=== PATIENT | female | born 1980 | race African-American/Black ===

== ENCOUNTER 2025-04-15 00:36 | Day surgery (SDC) | payer OTHER, SELFPAY ==
[2025-04-09 14:55] VITALS: BMI 24.5
--- NOTE | 2025-04-09 15:02 | PC.NURSE ---
Report to the Outpatient Waiting Room, entrance under the green pavilion located off [facility], at time _1030_ on date _[id number]_. Planned Procedure Time: _1230_.? Time changes happen often and if your time is changed the preop area will call you the afternoon before. - You and your visitor will be asked to self-screen and do not enter if you have any COVID symptoms. Please call surgeon if you need to reschedule. - A mask is optional within the hospital at this time. Patients may have clear liquids (water, carbonated beverages, clear teas, apple juice) until 3 hours prior to surgery with a maximum of 20 ounces. - No food from midnight until time of surgery and no smoking, or chewing tobacco (or any form of nicotine). No chewing gum, candy or mints. Take only the following medications with a SIP of water on the morning of surgery: ___None____ DO NOT STOP ANY OF YOUR OTHER PRESCRIPTION MEDICATIONS PRIOR TO SURGERY EXCEPT THE FOLLOWING Hold all vitamins and supplements for 3 days per anesthesiologist. Medications to discontinue per physician Date to take last dose Please no make-up, nail french, hairspray, perfume, deodorant, or body powder the day of surgery.? No jewelry (including any body piercings) or valuables the day of surgery, leave them at home.? Please take a shower or bath the night before, or the morning of, surgery with an antibacterial soap.? Wear comfortable, loose fitting clothing.? - Jewelry must be removed prior to entering the operating room.? Rings and piercings that are not removed may be cut off. - The hospital will not accept responsibility for valuables.? - Please leave all valuables, including medications, at home the day of surgery. If you are going home after surgery, a licensed milk tanker driver must drive you home.? - NO public transportation without another adult if you receive anesthesia. - We recommend that an adult stay with you for 24 hours following discharge. - We also recommend that you do not drive, make important decision, drink alcoholic beverages, or take any drugs that were not prescribed by your health care provider for at least 24 hours after your discharge time. Follow any additional instructions given to you from your surgeon. Telephone instructions given to __Shi___and asked if any additional questions and then verbalized understanding. Patient advised to call surgeon office or pre surgery nurse liaison [phone] if any additional questions.
--- OUTSIDE RECORDS SUMMARY | 2025-04-15 00:39 | XMS_ITS | Clinical Summary ---
Author Organization [facility] Address [address] [place] [address] Care Team Providers Care Title Insurance Sales Representative Name Role Phone Kaitlin Ambrosio NP Primary Care Provider Allergies No known active allergies Medications albuterol HFA (PROVENTIL HFA,VENTOLIN HFA,PROAIR HFA) 90 mcg/actuation inhaler Inhale 2 puffs every 6 (six) hours as needed 11/22/2023 Active cyanocobalamin (Vitamin B-12) 1,000 mcg tablet Take 1 tablet (1,000 mcg total) by mouth daily 08/18/2023 Active folic acid (FOLVITE) 1 mg tablet Take 1 tablet (1 mg total) by mouth daily 08/18/2023 Active Active Problems Problem Noted Date Diagnosed Date LTBI (latent tuberculosis infection) 12/04/2023 Assessment & Plan (03/04/2024 1:19 PM CDT): - Doing well on rifampin with no issues. - Continue rifampin 300 mg PO daily for an additional 1 month to complete the planned 4 weeks of therapy for treatment of latent TB - Discussed how TB testing may always be positive. Will provide letter to provide to her employer. Assessment & Plan (12/04/2023 2:14 PM CDT): - Doing well today with no acute complaints. Chest x-ray without concern for active TB. She has been on rifampin for about 2 weeks and has been tolerating this well overall, some diarrhea in the beginning. - No significant risk factors for TB but given positive IGRA and that she has already started on rifampin will plan to continue rifampin 600 mg PO daily for LTBI treatment. - Discussed LTBI diagnosis and risk of developing active disease in the future without treatment - Labs in 1 month (CBC and CMP). Will also add on HIV screening as it does not appear this has been previously done. Thumb pain, left 04/12/2023 Encounters Date Type Department Care Team Description 03/20/2025 10:20 AM CDT - 03/20/2025 11:59 PM CDT [facility] [address] [place] [id number] Personal history of tuberculosis Discharge Disposition: Discharge to home or self care from Last 3 Months Family History Medical History Relation Name Comments Breast cancer Paternal Grandmother Relation Name Status Comments Paternal Grandmother Social History Tobacco Use Types Packs/Day Years Used Date Smoking Tobacco: Never Smokeless Tobacco: Never Tobacco Cessation:Counseling Given: Not Answered Personal Safety Answer Date Recorded Have you ever been in or are you currently in a harmful physical or emotional relationship or is someone making you feel afraid or unsafe? Denies 07/14/2024 Comments No Sex and Gender Information Value Date Recorded Sex Assigned at Not on file Legal Sex Female 8:41 AM DISTRICT OR DISTRICT OFFICE DIRECTOR Gender Identity Female 05/03/2023 8:57 AM CDT Sexual Orientation Straight 05/03/2023 8: 57 AM CDT Obstetrics History Para Term AB IAB SAB Ectopic Multiple Livin g Live Births 3 3 3 Date Outcome GA Total Labor Labor/2nd/3rd Weight Sex Type Anes PTL Dora A1 A5 Name Clin Term Term Term Last Filed Vital Signs Vital Sign Reading Time Taken Comments Blood Pressure 126/72 07/14/2024 11:50 AM DISTRICT OR DISTRICT OFFICE DIRECTOR Pulse 78 07/14/2024 11:50 AM DISTRICT OR DISTRICT OFFICE DIRECTOR Temperature 36.4 C (97.5 F) 07/14/2024 6:08 AM DISTRICT OR DISTRICT OFFICE DIRECTOR Respiratory Rate 16 07/14/2024 9:30 AM DISTRICT OR DISTRICT OFFICE DIRECTOR Oxygen Saturation 100% 07/14/2024 11: 50 AM DISTRICT OR DISTRICT OFFICE DIRECTOR Inhaled Oxygen Concentration - - Weight 67.1 kg (147 lb 14.9 oz) 07/14/2024 6:08 AM DISTRICT OR DISTRICT OFFICE DIRECTOR Height 165.1 cm (5' 5) 07/14/2024 6:08 AM DISTRICT OR DISTRICT OFFICE DIRECTOR Body Mass Index 24.62 07/14/2024 6:08 AM DISTRICT OR DISTRICT OFFICE DIRECTOR Plan of Treatment Health Maintenance Due Date Last Done Comments Cervical Cancer Screening 1980 Depression Screening 1980 Varicella Vaccines (1 of 2 - 13+ 2-dose series) 1993 Hepatitis B Screening 1998 Regular Well Visit/Exam 18-64 1998 HPV Vaccines (1 - 3-dose SCD M series) 2007 Covid-19 Vaccine (3 - 2023-2 5 season) 2024 01/07/2021, 11/26/2020 Influenza Vaccine (#1) 2025 Breast Cancer Screening-Mammogram 09/30/2025 09/30/2024, 07/26/2023, 07/26/2023 DTaP/Tdap/Td Vaccine (2 - Td or Tdap) 08/22/2027 08/22/2017 Hepatitis C Screening Completed 05/16/2016 Pneumococcal vaccine <65 Aged Out No longer eligible based on patient's age to complete this topic Procedures Procedure Name Priority Date/Time Associated Diagnosis Comments XR CHEST PA LATERAL 2 VIEWS Schedule Routine, Read Routine (OP Routine) 03/20/2025 10:40 AM CDT Personal history of tuberculosis SCREENING MAMMOGRAM BILATERAL W COY Schedule Routine, Read Routine (OP Routine) 09/30/2024 9:39 AM DISTRICT OR DISTRICT OFFICE DIRECTOR Encounter for screening mammogram for malignant neoplasm of breast HEPATITIS PANEL, ACUTE Routine 05/16/2016 5:10 PM CDT from Last 3 Months or Most Recently Relevant to Health Maintenance Results * XR Chest PA Lateral 2 Views (03/20/2025 10:40 AM CDT) Anatomical Region Laterality Modality Body, Chest N/A Computed Radiogr aphy 03/23/2025 2:10 PM CDT Narrative 03/23/2025 2:10 PM CDT EXAM DESCRIPTION: XR CHEST PA LATERAL 2 VIEWS REASON FOR STUDY: Personal history of tuberculosis Personal history of tuberculosis 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 COMPARISON: None Available FINDINGS: LUNGS/PLEURA: There is no focal infiltrate or evidence of pneumothorax. No significant pleural effusion. HEART/MEDIASTINUM: The heart size is normal. Normal mediastinal and hilar contours. LINES/TUBES: None. BONES: No acute findings. OTHER: No other significant finding. IMPRESSION: No active cardiopulmonary disease. THIS IS AN ELECTRONICALLY VERIFIED FINAL REPORT 03/23/2025 2:10 PM - Electronically signed by Carlito Abarca M.D. 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 COMPARISON: None Available FINDINGS: LUNGS/PLEURA: There is no focal infiltrate or evidence of pneumothorax. No significant pleural effusion. HEART/MEDIASTINUM: The heart size is normal. Normal mediastinal and hilar contours. LINES/TUBES: None. BONES: No acute findings. OTHER: No other significant finding. IMPRESSION: No active cardiopulmonary disease. THIS IS AN ELECTRONICALLY VERIFIED FINAL REPORT 03/23/2025 2:10 PM - Electronically signed by Carlito Abarca M.D. RW T: Report ID: [id number] Reading Location: [id number] us Kaitlin Ambrosio NP IMG XR PROCEDURES Final Res ult * Screening Mammogram Bilateral W Coy (09/30/2024 9:39 AM DISTRICT OR DISTRICT OFFICE DIRECTOR) Anatomical Region Laterality Modality Breast Bilateral Mammography Impressions 09/30/2024 12:55 PM DISTRICT OR DISTRICT OFFICE DIRECTOR BI-RADS ATLAS category (overall): 1 - Negative There is no mammographic evidence of malignancy. A 1 year screening mammogram is recommended. The patient has been or will be contacted. We recommend annual screening mammography for women at average risk of breast cancer beginning at age 40, based on guidelines of the [employer] (ACR Practice Parameter for the Performance of Screening and Diagnostic Mammography) and [employer]. For women with and elevated risk of breast cancer, please refer to the ACR Practice Parameter for specific screening recommendations. The patient will be entered into a reminder system with a target due date of 1 year for her next screening exam. Narrative 09/30/2024 12:55 PM DISTRICT OR DISTRICT OFFICE DIRECTOR Screening Mammogram Bilateral W Coy: 09/30/24 The study was acquired using full field digital technology and interpreted from soft copy. 2D digital mammographic views, as well as 3D digital tomosynthesis were performed in the CC and MLO projections. CLINICAL: Encounter for screening mammogram for malignant neoplasm of breast. No relevant medical history has been documented for this patient. History of breast cancer in Paternal Grandmother. COMPARISONS: 07/26/2023 Screening Mammogram Bilateral W Coy 12/17/2020 Breast Imaging Screening Outside Reference BREAST TISSUE: The breasts are heterogeneously dense, which may obscure small masses. FINDINGS: No suspicious masses, suspicious calcifications, or other suspicious findings are seen within either breast. There has been no suspicious change. us Kadeem Cline MD IMG MAMMO PROCEDURES Fin al Result * Hepatitis panel, acute (05/16/2016 5:10 PM CDT) HepBsAg NONREACT NONREACTIVE 05/16/2016 6:12 PM CDT [facility] HISTORICAL RESULTS Comment: Siemens CentaurXP using TONNY (chemiluminescent immunoassay) technology. NONREACTIVE: IgM antibodies to Hepatitis B Surface antigen not detected. REACTIVE: IgM antibodies to Hepatitis B Surface antigen detected. Reactive results will be confirmed by neutralization testing. HBsAb qn < 3.10 mIU/mL 05/16/2016 6:01 PM CDT [facility] HISTORICAL RESULTS Comment: Siemens CentaurXP using TONNY (chemiluminescent immunoassay) technology. 9.99 IU/L or less.....NONREACTIVE: IgM antibodies to Hepatitis B Surface antibody are not detected. 10.00 IU/L or greater..REACTIVE: IgM antibodies to Hepatitis B Surface antibody are detected. Hep B core IgM NONREACT NONREACTIVE 6 6:[address] [facility] HISTORICAL RESULTS Comment: Siemens CentaurXP using TONNY (chemiluminescent immunoassay) technology. NONREACTIVE: IgM antibodies to Hepatitis B Core antigen not detected. EQUIVOCAL: IgM antibodies to Hepatitis B Core antigen may or may not be present. Obtain a new specimen and retest. REACTIVE: IgM antibodies to Hepatitis B Core antigen detected. Hep A IgM NONREACT NONREACTIVE 05/16/2016 6:[address] [facility] HISTORICAL RESULTS Comment: Siemens CentaurXP using TONNY (chemiluminescent immunoassay) technology. NONREACTIVE: IgM antibodies to Hepatitis A not detected. This does not exclude possibility of exposure to Hepatitis A or early acute infection. EQUIVOCAL:IgM antibodies to Hepatitis A may or may not be present. Suggest recollection and retest. REACTIVE: Antibodies to Hepatitis A detected. Hep C Ab NONREACT NONREACTIVE 05/16/2016 6:[address] [facility] HISTORICAL RESULTS Comment: Siemens CentaurXP using TONNY (chemiluminescent immunoassay) technology. NONREACTIVE: Antibodies to Hepatitis C not detected. This does not exclude early acute Hepatitis C infection, possibility of exposure to Hepatitis C, antibodies below detection limit, or to lack of antibody reactivity to the antigen used in this assay. EQUIVOCAL: Antibodies to Hepatitis C may or may not be present. Sample to be confirmed by real-time PCR method. REACTIVE: Antibodies to Hepatitis C detected. 05/16/2016 5:10 PM CDT 05/16/2016 5:16 PM CDT Taniya Garcia NP LAB MICROBIOLOGY - [facility] AL ORDERABLES Final Result [facility] HISTORICAL RESULTS from Last 3 Months or Most Recently Relevant to Health [place] [id number] [facility] Care Teams Title Insurance Sales Representative Relationship Specialty Start Date End Date Kaitlin Ambrosio NP [address] [place] [address] PCP - General Family Medicine 04/05/23
--- OUTSIDE RECORDS SUMMARY | 2025-04-15 00:39 | XMS_ITS | Encounter Summary ---
Author Organization [facility] [[email or web address]] Address [address] [place] [address] Phone Care Team Providers Care Search Specialist Name Role Phone Ayesha Ferrera APRN Primary Care Provider [phone] Derick Hallman MD Unavailable [phone] Reason for Visit * Reason Comments Medication Refill Encounter Details Date Type Department Care Team (Late st Contact Info) Description 12/13/2023 Refill [facility] [address] [address] Derick Hallman MD [address] [address] Medication Refill Social History Tobacco Use Types Packs/Day Years Used Date Smoking Tobacco: Never Smokeless Tobacco: Never Alcohol Use Standard Drinks/Week Comments Never 0 (1 standard drink = 0.6 oz pur e alcohol) Comments Unknown Sex and Gender Information Value Date Recorded Sex Assigned at Female 04/28/2023 12:39 PM CDT Legal Sex Female 12:38 PM CDT Gender Identity Female 04/28/2023 12:39 PM CDT Sexual Orientation Not on file documented as of this encounter Miscellaneous Notes * Telephone Encounter - Derick Hallman MD - 12/14/2023 8:44 AM CDT Refilled. * Telephone Encounter - Astrid Smallwood, RN - 12/13/2023 10:22 AM CDT Please refill if appropriate documented in this encounter Plan of Treatment Upcoming Encounters Date Type Department Care Team (Late st Contact Info) Description 08/01/2025 10:15 AM JEWEL LATHE OPERATOR Lab [facility] [address] [address] Lab, [facility] 08/01/2025 10:30 AM JEWEL LATHE OPERATOR Office Visit [facility] [address] [address] Derick Hallman MD [address] [id number] documented as of this encounter Visit Diagnoses Not on filedocumented in this encounter Care Teams Search Specialist Relationship Specialty Start Date End Date Iban KamalaMADONNA mosley [address] [place] [address] PCP - General Advanced Practice Nurse 04/28/23 Derick Hallman MD [address] [place] [phone] Oncology 06/14/23 documented as of this encounter
--- OUTSIDE RECORDS SUMMARY | 2025-04-15 00:39 | XMS_ITS | Clinical Summary ---
Author Organization [facility] Address [address] [place] [address] Care Team Providers Care Manager Programming Name Role Phone Kaitlin Ambrosio BOX TRUCK OWNER OPERATOR Primary Care Provider [phone] Allergies No known active allergies Medications folic acid (FOLVITE) 1 MG tablet Take 1 tablet (1 mg total) by mouth daily. Active vitamin B-12 (CYANOCOBALAMIN ) (CYANOCOBALAMIN ) 1000 mcg tablet Take 1 tablet (1,000 mcg total) by mouth daily. Active albuterol sulfate HFA 108 (90 Base) MCG/ACT inhaler Inhale 2 puffs into the lungs every 6 (six) hours as needed for Shortness of breath. 4 Active Active Problems No known active problems Immunizations Immunization Administration Dates Next Due MODERNA COVID-19 (12+) MRNA, LNP-S, PF, 100 MCG/ 0.5 ML DOSE 01/07/2021,11/26/2020 Tdap (Boostrix) 08/22/2017 Family History Medical History Relation Comments Diabetes Father No Known Problems Mother Relation Status Comments Father Mother Social History Tobacco Use Types Packs/Day Years Used Date Smoking Tobacco: Never Smokeless Tobacco: Never Alcohol Use Standard Drinks/Week Comments Yes 3.3 (1 standard drink = 0.6 oz p ure alcohol) Comments No Sex and Gender Information Value Date Recorded Sex Assigned at Not on file Legal Sex Female 7:20 PM CDT Gender Identity Not on file Sexual Orientation Not on file Last Filed Vital Signs Vital Sign Reading Time Taken Comments Blood Pressure 116/78 11/25/2023 12:02 PM CDT Pulse 90 11/25/2023 12:02 PM CDT Temperature 37.2 C (99 F) 11/25/2023 10:55 AM CDT Respiratory Rate 20 11/25/2023 12:02 PM CDT Oxygen Saturation 99% 11/25/2023 12:02 PM CDT Inhaled Oxygen Concentration - - Weight 66.7 kg (147 lb) 11/25/2023 10:55 AM CDT Height 165.1 cm (5' 5) 11/25/2023 10:55 AM CDT Body Mass Index 24.46 11/25/2023 10:55 AM CDT Plan of Treatment Health Maintenance Due Date Last Done Comments Cervical Cancer Screening Pap Smear (Age 30 to 64) Every 3 Years 1980 Annual Physical 1983 Hepatitis C 1998 Hepatitis B Vaccines (1 of 3 - 19+ 3-dose series) 1999 HPV Vaccines (1 - 3-dose SCDM series) 2007 Cervical Cancer Screening Pap with HPV Testing (Age 30 to 64) Every 5 Years 2010 Cervical Cancer Screening with HPV 2010 Mammogram Screening 2020 COVID-19 Vaccine ( season) 2024 01/07/2021, 11/26/2020 DTaP, Tdap and Td Vaccines (2 - Td or Tdap) 08/22/2027 08/22/2017, 05/20/1986, 05/20/1983, Additional history exists Meningococcal B Vaccine Aged Out No l onger eligible based on patient's age to complete this topic Meningococcal Vaccine Aged Out No seda antonia eligible based on patient's age to complete this topic Pneumococcal Vaccine: Pediatrics (0 to 5 Years) and At-Risk Patients (6 to 49 Years) Aged Out No longer eligible based on patient's age to complete this topic RSV Immunizations Under 20 Months Aged Out No longer eligible based on patient's age to complete this topic [place] [address] [employer] Care Teams Manager Programming Relationship Specialty Start Date End Date Kaitlin Ambrosio FNP [address] [phone] PCP - General NURSE PRACTITIONER 11/25/23
--- OUTSIDE RECORDS SUMMARY | 2025-04-15 00:39 | XMS_ITS | Clinical Summary ---
Author Organization [facility] [employer] Address [address] [place] [address] Care Team Providers Care Studio Camera Operator Name Role Phone Kaitlin Ambrosio APRN-CHIEF RESERVOIR ENGINEERING Primary Care Provider + Source Comments [facility],non-owned Affiliates and Associated Physician Practices is amultiple site organization consisting of ambulatory clinics and hospital sitesin [place], [place], [place] and [place]. This disclosure is being madepursuant to the Care Everywhere program and may not contain all information available regarding this patient. Last updated 18.[facility] [employer] Allergies No known active allergies Medications * Be aware that medications may not be up to date on this document. Alwaysverify current medications with the patient. cetirizine (ZYRTEC) 10 MG tablet 6 Active dicyclomine (Bentyl) 20 MG tablet Take 1 (one) tablet by mouth 4 times daily Active cyanocobalamin (Vitamin B-12) 1000 MCG tablet Take 1 (one) tablet by mouth once daily Active ferrous sulfate 325 (65 FE) MG tablet Take 1 (one) tablet by mouth daily with breakfast Active famotidine (Pepcid) 20 MG tablet Take 1 (one) tablet by mouth 2 times daily as needed 4 Active albuterol HFA (Proventil; Ventolin; Proair) 108 (90 Base) MCG/ACT inhaler Inhale 2 (two) puffs by mouth every 4 hours as needed 4 Active oxyCODONE, immediate release, (Roxicodone) 5 MG tabletIndicatio ns:Biliary dyskinesia Take 1 (one) tablet by mouth every 4 hours as needed for Pain 8 tablet 4 Active docusate sodium (Colace) 100 MG capsule Take 1 (one) capsule by mouth 2 times daily 20 capsule 4 Active Active Problems Problem Noted Date Diagnosed Date Biliary dyskinesia 06/27/2024 Family History Medical History Relation Name Comments Cancer Maternal Aunt Status: Alive Diabetes Maternal Aunt HIV/AIDS Maternal Grandmother Status: Alive Sickle Cell Anemia Other Cancer Paternal Aunt Status: Deceas ed Diabetes Paternal Aunt HIV/AIDS Paternal Grandmother Status: Relation Name Status Comments Maternal Aunt Maternal Grandmother Other Paternal Aunt Paternal Grandmother Social History Tobacco Use Types Packs/Day Years Used Date Smoking Tobacco: Never Smokeless Tobacco: Never Alcohol Use Standard Drinks/Week Comments Yes 0 (1 standard drink = 0.6 oz pur e alcohol) Occ. Comments No Sex and Gender Information Value Date Recorded Sex Assigned at Not on file Legal Sex Female 5:49 PM CERAMIC TILE INSTALLATION HELPER Gender Identity Not on file Sexual Orientation Not on file Last Filed Vital Signs Vital Sign Reading Time Taken Comments Blood Pressure 117/75 09/02/2024 9:50 AM CERAMIC TILE INSTALLATION HELPER Pulse 77 09/02/2024 9:50 AM CERAMIC TILE INSTALLATION HELPER Temperature 36.5 C (97.7 F) 09/02/2024 9:50 AM CERAMIC TILE INSTALLATION HELPER Respiratory Rate 20 08/07/2024 12:01 PM CERAMIC TILE INSTALLATION HELPER Oxygen Saturation 97% 09/02/2024 9:50 AM CERAMIC TILE INSTALLATION HELPER Inhaled Oxygen Concentration - - Weight 66.7 kg (147 lb) 08/07/2024 6:46 AM CERAMIC TILE INSTALLATION HELPER Height 165.1 cm (5' 5) 09/02/2024 9:50 AM CERAMIC TILE INSTALLATION HELPER Body Mass Index 24.46 08/07/2024 6:46 AM CERAMIC TILE INSTALLATION HELPER Plan of Treatment Health Maintenance Due Date Last Done Comments LIPID TESTING 1980 HIV SCREENING 1995 HEPATITIS C SCREENING 09/08/1998 DTAP/TDAP/TD VACCINES (1 - Tdap) 1999 HEPATITIS B VACCINE (1 of 3 - 19+ 3-dose series) 1999 PAP SMEAR 2001 HPV VACCINE (1 - 3-dose SCDM series) 2007 COVID-19 VACCINE (2023-2 5 season) 2024 01/07/2021, 11/26/2020 DEPRESSION SCREENING 09/11/2024 INFLUENZA VACCINE (#1) 2025 07/26/2018 MAMMOGRAM 07/26/2025 07/26/2023, 07/26/2023 ZOSTER VACCINE (1 of 2) 2030 HIB VACCINE Aged Out No longer eligi ble based on patient's age to complete this topic MENINGOCOCCAL (Group B) VACCINE SHARED DECISION-MAKING Aged Out No longer eligible based on patient's age to complete this topic MENINGOCOCCAL GROUPS A/C/Y/W VACCINE Aged Out No longer eligible b ased on patient's age to complete this topic PNEUMOCOCCAL VACCINE Aged Out No long er eligible based on patient's age to complete [place] [address] [facility] Care Teams Studio Camera Operator Relationship Specialty Start Date End Date Kaitlin Ambrosio APRN-CHIEF RESERVOIR ENGINEERING [address] [phone] PCP - General Nurse Practitioner Family 08/07/24
--- OUTSIDE RECORDS SUMMARY | 2025-04-15 00:39 | XMS_ITS | Referral Summary ---
Author Organization [facility] [place] [facility] Address [address] [place] [address] Care Team Providers Care Nocturnist Name Role Phone Kaitlin Ambrosio NP Primary Care Provider [phone] Encounters Date Type Department Care Team Description 03/20/2025 10:20 AM CDT - 03/20/2025 11:59 PM CDT Hospital Encounter [facility] [address] [place], [place] [id number] Personal history of tuberculosis Discharge Disposition: Discharge to home or self care from Last 3 Months Allergies No known active allergies Medications albuterol [...] been previously done. Thumb pain, left 04/12/2023 Social History Tobacco Use Types Packs/Day Years [...] on file Legal Sex Female 8:41 AM LINE INSTALLER REPAIRER Gender Identity Female 05/03/2023 8:57 AM CDT Sexual Orientation Straight 05/03/2023 8: 57 AM CDT Last Filed Vital Signs Vital Sign Reading Time Taken Comments Blood Pressure 126/72 07/14/2024 11:50 AM LINE INSTALLER REPAIRER Pulse 78 07/14/2024 11:50 AM LINE INSTALLER REPAIRER Temperature 36.4 C (97.5 F) 07/14/2024 6:08 AM LINE INSTALLER REPAIRER Respiratory Rate 16 07/14/2024 9:30 AM LINE INSTALLER REPAIRER Oxygen Saturation 100% 07/14/2024 11: 50 AM LINE INSTALLER REPAIRER Inhaled Oxygen Concentration - - Weight 67.1 kg (147 lb 14.9 oz) 07/14/2024 6:08 AM LINE INSTALLER REPAIRER Height 165.1 cm (5' 5) 07/14/2024 6:08 AM LINE INSTALLER REPAIRER Body Mass Index 24.62 07/14/2024 6:08 AM LINE INSTALLER REPAIRER Plan of Treatment Not on file Procedures Procedure Name Priority Date/Time Associated Diagnosis Comments XR CHEST PA LATERAL 2 VIEWS Schedule Routine, Read Routine (OP Routine) 03/20/2025 10:40 AM CDT Personal history of tuberculosis SCREENING MAMMOGRAM BILATERAL W JT Schedule Routine, Read Routine (OP Routine) 09/30/2024 9:39 AM LINE INSTALLER REPAIRER Encounter for screening mammogram for malignant neoplasm [...] Carlito Abarca M.D. RW T: Report ID: [id number] Reading Location: [id number] Procedure Note Carlito Abarca MD - 03/23/2025 [...] Carlito Abarca M.D. RW T: Report ID: [id number] Reading Location: [id number] us Kaitlin Ambrosio GALVANIZING POT RUNNER IMG XR PROCEDURES Final Res ult * Screening Mammogram Bilateral W Jt (09/30/2024 9:39 AM LINE INSTALLER REPAIRER) Anatomical Region Laterality Modality Breast Bilateral Mammography Impressions 09/30/2024 12:55 PM LINE INSTALLER REPAIRER BI-RADS ATLAS category (overall): 1 - Negative There is no mammographic evidence of malignancy. A 1 year screening mammogram is recommended. The patient has been or will be contacted. We recommend annual screening mammography for women at average risk of breast cancer beginning at age 40, based on guidelines of the [employer] (ACR Practice Parameter for the Performance of Screening and Diagnostic Mammography) and [employer]. For women with and elevated risk of breast cancer, please refer to the ACR Practice Parameter for specific screening recommendations. The patient will be entered into a reminder system with a target due date of 1 year for her next screening exam. Narrative 09/30/2024 12:55 PM LINE INSTALLER REPAIRER Screening Mammogram Bilateral W Jt: 09/30/24 The study was acquired using full [...] Grandmother. COMPARISONS: 07/26/2023 Screening Mammogram Bilateral W Jt 12/17/2020 Breast Imaging Screening Outside Reference BREAST TISSUE: The breasts are heterogeneously dense, which may obscure small masses. FINDINGS: No suspicious masses, suspicious calcifications, or other suspicious findings are seen within either breast. There has been no suspicious change. us Kadeem Cline MD IMG MAMMO PROCEDURES Fin al Result * Hepatitis panel, acute (05/16/2016 5:10 PM CDT) HepBsAg NONREACT NONREACTIVE Comment: Siemens CentaurXP using TONNY (chemiluminescent immunoassay) technology. NONREACTIVE: IgM antibodies to Hepatitis B Surface antigen not detected. REACTIVE: IgM antibodies to Hepatitis B Surface antigen detected. Reactive results will be confirmed by neutralization testing. HBsAb qn < 3.10 mIU/mL Comment: Siemens CentaurXP using TONNY (chemiluminescent immunoassay) technology. 9.99 IU/L or less.....NONREACTIVE: IgM antibodies to Hepatitis B Surface antibody are not detected. 10.00 IU/L or greater..REACTIVE: IgM antibodies to Hepatitis B Surface antibody are detected. Hep B core IgM NONREACT NONREACTIVE 6 6:40 PM T [facility] HISTORICAL RESULTS Comment: Siemens CentaurXP using TONNY (chemiluminescent immunoassay) technology. NONREACTIVE: IgM antibodies to Hepatitis B Core antigen not detected. EQUIVOCAL: IgM antibodies to Hepatitis B Core antigen may or may not be present. Obtain a new specimen and retest. REACTIVE: IgM antibodies to Hepatitis B Core antigen detected. Hep A IgM NONREACT NONREACTIVE 05/16/2016 6:41 PM [facility] HISTORICAL RESULTS Comment: Siemens CentaurXP using TONNY (chemiluminescent immunoassay) technology. NONREACTIVE: IgM antibodies to Hepatitis A not detected. This does not exclude possibility of exposure to Hepatitis A or early acute infection. EQUIVOCAL:IgM antibodies to Hepatitis A may or may not be present. Suggest recollection and retest. REACTIVE: Antibodies to Hepatitis A detected. Hep C Ab NONREACT NONREACTIVE 05/16/2016 6:39 PM [facility] HISTORICAL RESULTS Comment: Siemens CentaurXP using TONNY [...] CDT Taniya Garcia NP LAB MICROBIOLOGY - [facility] AL ORDERABLES Final Result [facility] HISTORICAL RESULTS from Last 3 Months or Most Recently Relevant to Health Maintenance Insurance [facility] [place] [id number] [facility] Care Teams Nocturnist Relationship Specialty Start Date End Date Kaitlin Ambrosio NP [address] [place], [place] [id number] PCP - General Family Medicine 04/05/23
--- OUTSIDE RECORDS SUMMARY | 2025-04-15 00:39 | XMS_ITS | Clinical Summary ---
Author Organization [facility] Address [address] [place] [address] Phone Care Team Providers Care Business Reporter Name Role Phone Ayesha Ferrera APRN Primary Care Provider [phone] Derick Hallman MD Unavailable [phone] Allergies No known active allergies Medications famotidine (PEPCID) 20 MG Tablet Take 1 tablet twice a day by oral route as needed for 30 days. 4 Active dicyclomine (BENTYL) 20 MG Tablet Take 20 mg by mouth. Active VITAMIN D, CHOLECALCIFEROL , PO Take 1 tablet every day by oral route for 90 days. 1 03/28/20 25 Discontinu ed(Med List Clean Up) ferrous sulfate 325 (65 Fe) MG Tablet TAKE 1 TABLET BY MOUTH EVERY DAY FOR 30 DAYS 4 03/28/20 25 Discontinu ed(Med List Clean Up) Active Problems Problem Noted Date Diagnosed Date Iron deficiency anemia, unspecified 04/03/2025 Iron deficiency anemia due to chronic blood loss 05/26/2023 Encounters Date Type Department Care Team Description 04/03/2025 Results Follow-Up [facility] [address] [address] Yoselin Ceballos, COOKIE MIXER HELPER, ADJUNCT SPANISH INSTRUCTOR RETICULOCYTE COUNT (RETIC), COMP. METABOLIC PANEL [id number] [place], FERRITIN [id number] [place], Additional followed-up results: 6 03/28/2025 10:30 AM CDT Office Visit [facility] [address] [phone] Derick Hallman MD Iron deficiency anemia due to chronic blood loss (Primary Dx); Vitamin B12 deficiency; Folate deficiency 03/28/2025 10:15 AM CDT Lab [facility] [address] [phone] Derick Hallman MD Lab[facility] Iron deficiency anemia due to chronic blood loss; Vitamin B12 deficiency; Folate deficiency; Normochromic anemia 03/28/2025 Travel from Last 3 Months Family History Medical History Relation Name Comments Diabetes Father Sickle Cell Anemia Paternal Cousin Relation Name Status Comments Father Alive Mother Alive Paternal Cousin Other Social History Tobacco Use Types Packs/Day Years Used Date Smoking Tobacco: Never Smokeless Tobacco: Never Tobacco Cessation:Counseling Given: Not Answered Alcohol Use Standard Drinks/Week Comments Never 0 (1 standard drink = 0.6 oz pur e alcohol) Comments Unknown Sex and Gender Information Value Date Recorded Sex Assigned at Female 04/28/2023 12:39 PM CDT Legal Sex Female 12:38 PM CDT Gender Identity Female 04/28/2023 12:39 PM CDT Sexual Orientation Not on file Last Filed Vital Signs Vital Sign Reading Time Taken Comments Blood Pressure 120/68 03/28/2025 11:00 AM CDT Pulse 64 03/28/2025 11:00 AM CDT Temperature 36.8 C (98.2 F) 03/28/2025 11:00 AM CDT Respiratory Rate 18 03/28/2025 11:00 AM CDT Oxygen Saturation 98% 03/28/2025 11:00 AM CDT Inhaled Oxygen Concentration - - Weight 71.4 kg (157 lb 8 oz) 03/28/2025 11:00 AM CDT Height 165.1 cm (5' 5) 03/28/2025 11:00 AM CDT Body Mass Index 26.21 03/28/2025 11:00 AM CDT Plan of Treatment Upcoming Encounters Date Type Department Care Team (Late st Contact Info) Description 08/01/2025 10:15 AM PROCESSING OPERATOR Lab [facility] [address] [phone] Lab, Cc [facility] 08/01/2025 10:30 AM PROCESSING OPERATOR Office Visit [facility] [place] [address] [place] [address] Derick Hallman MD [address] [place] [address] Health Maintenance Due Date Last Done Comments Hepatitis C Virus (HCV) Screening 1980 Hepatitis B Immunization (1 of 3 - 19+ 3-dose series) 1999 Pap Smear 2001 Human Papillomavirus (HPV) Immunization (1 - 3-dose SCDM series) 2007 Cervical Cancer Screening (CCS) 2010 HPV/Cotest 2010 SARS-COV-2 Immunization ( season) 2024 01/07/2021, 11/26/2020 Influenza Immunization (#1) 2025 07/26/2018 Mammogram 09/30/2025 09/30/2024, 07/26/2023 Respiratory Syncytial Virus (RSV) Immunization (Adult) (1 - 1-dose 75+ series) 2055 DTaP/Tdap/Td Immunization Discontinued 2020, 08/22/2017 TdaP Immunization Completed 12/23/2020, 08/22/2017 Discussion re Starting/Frequency of Mammograms Completed 09/30/2024, 07/26/2023 Meningococcal Immunization (ACWY) Aged Out No longer eligible based on patient's age to complete this topic Pneumococcal Immunization Combined Aged Out No longer eligible based on patient's age to complete this topic Rotavirus Immunization Aged Out No lo nger eligible based on patient's age to complete this topic Procedures Procedure Name Priority Date/Time Associated Diagnosis Comments CBC WITH AUTO DIFF [place] Routine 03/28/2025 10:45 AM CDT HAPTOGLOBIN [place] Routine 03/28/2025 10:45 AM CDT LDH [id number] [place] Routine 03/28/2025 10:45 AM CDT VITAMIN B12 [id number] [place] Routine 03/28/2025 10:45 AM CDT IRON AND TIBC [id number] [place] Routine 03/28/2025 10:45 AM CDT FOLATE [id number] [place] Routine 03/28/2025 10:4 5 AM CDT FERRITIN [id number] [place] Routine 03/28/2025 10 :45 AM CDT COMP. METABOLIC PANEL [id number] [place] Routine 03/28/2025 10:45 AM CDT RETICULOCYTE COUNT (RETIC) Routine 03/28/2025 10:45 AM CDT Iron deficiency anemia due to chronic blood loss Vitamin B12 deficiency Folate deficiency Normochromic anemia from Last 3 Months Results * HAPTOGLOBIN [place] (03/28/2025 10:45 AM CDT) Haptoglobin 188 42 - 296 MG/DL CANCER UNDERTAKER ASSISTANT [facility] 03/28/2025 10:4 5 AM CDT Navi [facility] - 03/30/2025 8:38 PM CDT TESTING PERFORMED AT: [] [facility], [address] [place] [address], [address], PHONE: [phone], GENERAL OFFICE DISPATCHER: ELIGIO MO, PHD Yoselin Ceballos APRN, ADJUNCT SPANISH INSTRUCTOR LAB SEND OUTS F inal Result [facility]ER UNDERTAKER ASSISTANT [facility] [place] [address], * VITAMIN B12 [id number] [place] (03/28/2025 10:45 AM CDT) VITAMIN B12 745 232 - 1,245 PG/ML [facility] UNDERTAKER ASSISTANT [facility] 03/28/2025 10:4 5 AM CDT [facility] - 03/30/2025 8:38 PM CDT TESTING PERFORMED AT: [] [facility], [address] [place] [address], [address], PHONE: [phone], GENERAL OFFICE DISPATCHER: ELIGIO MO, PHD Yoselin Ceballos APRN, ADJUNCT SPANISH INSTRUCTOR LAB SEND OUTS F inal Result Performing Organization Address [facility] Co de Phone Number CANCER UNDERTAKER ASSISTANT [facility] [place] [address], [place] [phone] * (ABNORMAL) LDH [id number] [place] (03/28/2025 10:45 AM CDT) LDH 113(L) 119 - 226 IU/L [facility] UNDERTAKER ASSISTANT [facility] 03/28/2025 10:4 5 AM CDT [facility] - 03/30/2025 8:38 PM CDT TESTING PERFORMED AT: [] [facility], [address] [place] [address], [address], PHONE: [phone], GENERAL OFFICE DISPATCHER: ELIGIO MO, PHD Yoselin Ceballos APRN, ADJUNCT SPANISH INSTRUCTOR LAB SEND OUTS F inal Result Performing Organization Address [facility] Co de Phone Number CANCER UNDERTAKER ASSISTANT [facility] [place] [address], [place] [phone] * (ABNORMAL) IRON AND TIBC [id number] [place] (03/28/2025 10:45 AM CDT) Iron Bind.Cap.(TIBC) 334 250 - 450 UG/DL [facility] UNDERTAKER ASSISTANT [facility] UIBC 293 131 - 425 UG/DL [facility] UNDERTAKER ASSISTANT [facility] Iron, Serum 41 27 - 159 UG/DL [facility] UNDERTAKER ASSISTANT [facility] Iron Saturation 12(L) 15 - 55 % [facility] 03/28/2025 10:4 5 AM CDT Narrative [facility] - 03/30/2025 8:38 PM CDT TESTING PERFORMED AT: [] [facility], [address] [place] [address], [address], PHONE: [phone], GENERAL OFFICE DISPATCHER: ELIGIO MO, PHD Yoselin Ceballos APRN, JANAE LAB SEND OUTS F inal Result Performing Organization Address City/[facility]/ZIP Co de Phone Number CANCER UNDERTAKER ASSISTANT [facility] [place] [address], * FOLATE [id number] [place] (03/28/2025 10:45 AM CDT) Folate (Folic Acid), Serum 4.6 >3.0 NG/ML [facility] Comment: A SERUM FOLATE CONCENTRATION OF LESS THAN 3.1 NG/ML IS CONSIDERED TO REPRESENT CLINICAL DEFICIENCY. 03/28/2025 10:4 5 AM CDT Narrative [facility] - 03/30/2025 8:38 PM CDT TESTING PERFORMED AT: [] [facility], [address] [place] [address], [address], PHONE: [phone], GENERAL OFFICE DISPATCHER: ELIGIO MO, PHD Yoselin Ceballos APRN, JANAE LAB SEND OUTS F inal Result Performing Organization Address City/[facility]/ZIP Co de Phone Number CANCER UNDERTAKER ASSISTANT [facility] [place] [address], * FERRITIN [id number] [place] (03/28/2025 10:45 AM CDT) Ferritin, Serum 36 15 - 150 NG/ML [facility] 03/28/2025 10:4 5 AM CDT Narrative [facility] - 03/30/2025 8:38 PM CDT TESTING PERFORMED AT: [] [facility], [address] [facility], [place], [address], PHONE: [phone], GENERAL OFFICE DISPATCHER: ELIGIO MO, PHD Yoselin Ceballos APRN, ADJUNCT SPANISH INSTRUCTOR LAB SEND OUTS F inal Result CANCER UNDERTAKER ASSISTANT [facility] [employer] [address] [place] [address], * COMP. METABOLIC PANEL [id number] [place] (03/28/2025 10:45 AM CDT) GLUCOSE, SERUM 94 70 - 99 MG/DL [facility] UNDERTAKER ASSISTANT [facility] BUN 9 6 - 24 MG/DL [facility] CREATININE, SERUM 0.73 0.57 - 1.00 MG/DL [facility] EGFR 104 >59 ML/MIN/1.7 3 [facility] UNDERTAKER ASSISTANT [facility] BUN/CREATININE RATIO 12 9 - 23 [facility] UNDERTAKER ASSISTANT [facility] SODIUM, SERUM 140 134 - 144 MMOL/L [facility] POTASSIUM, SERUM 4.2 3.5 - 5.2 MMOL/L [facility] CHLORIDE, SERUM 105 96 - 106 MMOL/L [facility] CARBON DIOXIDE, TOTAL 21 20 - 29 MMOL/L [facility] CALCIUM, SERUM 8.8 8.7 - 10.2 MG/DL [facility] PROTEIN, TOTAL, SERUM 6.8 6.0 - 8.5 G/DL [facility] UND[facility] ALBUMIN, SERUM 4.4 3.9 - 4.9 G/DL [facility] GLOBULIN, TOTAL 2.4 1.5 - 4.5 G/DL [facility] BILIRUBIN, TOTAL <0.2 0.0 - 1.2 MG/DL [facility] ASS[facility] ALKALINE PHOSPHATASE, S 47 44 - 121 IU/L [facility] UNDERTAKER ASSISTANT [facility] AST (SGOT) 14 0 - 40 IU/L [facility] UNDERTAKER ASSISTANT [facility] ALT (SGPT) 12 0 - 32 IU/L [facility] UNDERTAKER ASSISTANT [facility] 03/28/2025 10:4 5 AM CDT Narrative CANCER UNDERTAKER ASSISTANT [facility] - 03/30/2025 8:38 PM CDT TESTING PERFORMED AT: [] [facility], [address] [place] [address], [place], [address], PHONE: [phone], GENERAL OFFICE DISPATCHER: ELIGIO MO, PHD Yoselin Ceballos APRN, ADJUNCT SPANISH INSTRUCTOR LAB SEND OUTS F inal Result [facility] UNDERTAKER ASSISTANT [facility] [address] [place] [address], * (ABNORMAL) CBC WITH AUTO DIFF [place] (03/28/2025 10:45 AM CDT) WBC 4.2 4.0 - 10.0 10*3/uL [facility] UNDERTAKER ASSISTANT [facility] HGB 9.8(L) 11.2 - 15.7 g/dL [facility] UNDERTAKER ASSISTANT [facility] HCT 30.6(L) 34.1 - 44.9 % [facility] UNDERTAKER ASSISTANT [facility] PLT 292 163 - 369 10*3/uL [facility] UNDERTAKER ASSISTANT [facility] MPV 9.0(L) 9.4 - 12.4 fL [facility] UNDERTAKER ASSISTANT [facility] RBC 3.40(L) 3.93 - 5.22 10*6/uL [facility]ER UNDERTAKER ASSISTANT [facility] MCV 90 79 - 95 fL [facility]ER UNDERTAKER ASSISTANT [facility] MCH 28.8 25.6 - 32.2 pg [facility] UNDERTAKER ASSISTANT [facility] MCHC 32.0(L) 32.2 - 36.5 g/dL [facility]ER UNDERTAKER ASSISTANT [facility] RDW 13.8 11.6 - 14.4 % [facility] UNDERTAKER ASSISTANT [facility] Neutrophils % 45.1 36.0 - 66.0 % [facility] UNDERTAKER ASSISTANT [facility] Lymphocytes % 43.2(H) 19.0 - 40.0 % [facility] UNDERTAKER ASSISTANT [facility] Monocytes % 8.7 4.1 - 12.1 % [facility] UNDERTAKER ASSISTANT [facility] Eosinophils % 2.1 0.0 - 3.5 % [facility] UNDERTAKER ASSISTANT [facility] Basophils % 0.7 0.0 - 1.0 % [facility] UNDERTAKER ASSISTANT [facility] Absolute Neutrophils 1.9 1.4 - 6.6 10*3/uL [facility] Absolute Lymphocytes 1.8 0.8 - 4.0 10*3/uL [facility] UNDERTAKER ASSISTANT [facility] Absolute Monocytes 0.4 0.2 - 1.2 10*3/uL [facility] UNDERTAKER ASSISTANT [facility] Absolute Eosinophils 0.1 0.0 - 0.4 10*3/uL [facility] UNDERTAKER ASSISTANT [facility] Absolute Basophils 0.0 0.0 - 0.1 10*3/uL [facility] 03/28/2025 10:4 5 AM CDT Yoselin Ceballos APRN, CNP LAB SEND OUTS F inal Result Performing Organization Address [facility] de Phone Number [facility] [place] [address], * RETICULOCYTE COUNT (RETIC) (03/28/2025 10:45 AM CDT) Reticulocyte count 1.55 0.50 - 1.70 % [facility] RET-He 30.90 28.20 - 36.60 pg [facility] Comment: RET-He is a direct assessment of incorporation of iron into erythrocyte hemoglobin. It provides an indirect measure of the iron available for new erythropoiesis over past 2-4 days. Blood 03/28/2025 10:4 5 AM CDT Narrative [facility] - 03/28/2025 10:57 AM CDT Release to patient->Immediate Yoselin Ceballos APRN, JANAE HEMATOLOGY ORDERA BLES Final Result Performing Organization Address [facility] Co de Phone Number [facility] [place] [address], from Last 3 Months Insurance [facility] Care Teams Business Reporter Relationship Specialty Start Date End Date Ayesha Ferrera APRN [address] [place] [address] PCP - General Advanced Practice Nurse 04/28/23 Derick Hallman MD [address] [place] [phone] Oncology 06/14/23
--- NOTE | 2025-04-15 07:59 | SUR.PREOP ---
pt had labs from another facility from Dr Cline H+H order. HGB- 9.8, HCT-30.6. I called Dr Cline about results, no orders at this time.
[2025-04-15 11:15] VITALS: BP 108/71; PULSE 78; RESP 16; TEMP 36.5; O2SAT 100
[2025-04-15] MEDS: ACETAMINOPHEN 500 MG TABLET 1000 MG PO (11:15)
[2025-04-15 11:28] LABS: BEDSIDEPREGUCG Negative (Negative)
--- NOTE | 2025-04-15 12:12 | PM.IMHP ---
H&P: HPI History of Present Illness Date/Time: 04/15/25 12:12 Chief Complaint: abnormal uterine bleeding Narrative: 44 yo female who presents for hysteroscopy, D&C, endometrial ablation for abnormal uterine bleeding. Patient has a long history of menorrhagia. Patient continues to struggle with heavy menses. She is still having a regular monthly menses. Patient is still requiring iron transfusions due to anemia. Patient was not interested in hormonal contraceptives in the past. She is interested in endometrial ablation. Patient is in a same-sex relationship. Review of Systems Cardiovascular: Cardiovascular: Denies chest pain, Denies leg edema, Denies palpitations, Denies dyspnea and Denies dyspnea on exertion Respiratory: Respiratory: Denies cough, Denies dyspnea and Denies dyspnea on exertion Gastrointestinal: Gastrointestinal: Denies abdominal pain, Denies constipation, Denies diarrhea, Denies nausea and Denies vomiting Genitourinary: Genitourinary: Denies hematuria, Denies urinary frequency, Denies dysuria, Denies pelvic pain, Denies urinary incontinence and Denies vaginal discharge Neurologic: Reports system reviewed and no additional complaints, except as documented Psychiatric: Psychiatric: Reports no additional psychiatric complaints Endocrine: Endocrine: Denies palpitations PMFSH Past Medical History Medical History Vaginal discharge Screening for breast cancer demise x1 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 Constipation Surgical History Surgical History (Updated 03/25/25 @ 13:48 by Adrianne Galindo CMA) Hx of cholecystectomy H/O gynecological procedure mirena insertion 08/25/2011 mirena removal 11/22/2012 H/O colonoscopy Family History Family History Father Diabetes mellitus Mother Hypertension Other Bone cancer Brain cancer Social History Social History Smoking status: Never smoker Alcohol intake: current Alcohol use details: occasional Substance use: never Lack of Transportation: No Lack of Food: Never True Current Housing: I Have Housing Concerned About Future Housing: No Difficulty Paying Gas/Electric Bills: No Difficulty Paying for Meds: No Currently Unemployed: No Education: High School Diploma/GED Difficulty w/ Childcare or Family Care: No Living arrangements: with family Occupation/Education: occupation Gender identity (if verbalized by the patient): Female Sexual Orientation (if Verbalized by the Patient): Straight or Heterosexual Spiritual care concerns: No Meds Home Medications and Allergies Home Medications ?Medication ?Instructions ?Recorded ?Confirmed ?Type No Home Medications 03/25/25 04/09/25 History Allergies Allergy/AdvReac Type Severity Reaction Status Date / Time No Known Allergies Allergy Verified 04/15/25 11:28 Vital Signs Vital Signs - 24 hr 04/15/25 11:15 Temperature 97.7 F Pulse Rate 78 Respiratory Rate 16 Blood Pressure 108/71 Pulse Oximetry 100 Oxygen Delivery Room Air Exam Const: General: no acute distress Eyes: EOM: EOMs intact bilaterally Neck: Neck: supple Thyroid: thyroid normal Chest: Breast/axilla inspection: normal inspection of the breasts Breast/axilla palpation: normal palpation of the breasts, normal palpation of the axillae and no axillary lymphadenopathy Resp: Effort & Inspection: normal respiratory effort Auscultation: clear to auscultation bilaterally Cardio: Rate: regular rate Rhythm: regular rhythm GI: Inspection: non-distended GI Palp: Yes Soft to palpation, No Tenderness to palpation present (GI) and No Guarding due to palpation present (GI) Auscultation: normal bowel sounds : General: No bladder normal to palpation External Female Exam: normal external appearance Speculum Exam - Vagina: normal vaginal discharge and No vaginal bleeding Speculum Exam - Cervix: nontender Bimanual exam- vagina & uterus: No bladder normal to palpation and No Cervical tenderness present OB/external & speculum: No vaginal bleeding Skin: General skin exam: normal color and no rashes or lesions noted Neuro: Cognition (Neuro): normal cognition Speech: normal speech Extrem: General: normal to inspection and no edema Psych: Mental Status: mental status grossly normal Affect: normal affect Assessment and Plan Assessment and plan (1) Abnormal uterine bleeding (AUB): Code(s): N93.9 - Abnormal uterine and vaginal bleeding, unspecified Status: Acute Assessment and Plan: continues to have heavy menses pt still receiving iron transfusions pelvic US was normal with no structural causes of bleeding Reviewed management options of abnormal uterine bleeding Discussed hormonal contraceptives, endometrial ablation, hysterectomy Risks and benefits of each reviewed Patient wishes to proceed with endometrial ablation Patient is in a same-sex relationship and does not require permanent sterilization Will proceed with hysteroscopy, D&C, endometrial ablation
--- NOTE | 2025-04-15 12:14 | WPDHPUPDATE1 ---
History and Physical Update Update Date/Time: 04/15/25 12:14 History and Physical has been reviewed, including an updated exam of the patient. There are NO changes in the patient's condition. Risks, benefits, and alternatives have been discussed and questions answered. Patient agrees to proceed with procedure.
--- NOTE | 2025-04-15 12:28 | P.PNAN_ITS ---
Anes - Eval Pre Procedure Procedure: Operation Date: 04/15/25 12:30 Proposed Procedures p Hysteroscopy, Dilation and Curettage, Matilde Endometrial Ablation - Kadeem Cline MD Date/Time: 04/15/25 12:28 Pre Op Diagnosis: abnormal uterine bleeding Patient Data Age: 44 Gender: F Height: 1.65 m Weight: 70.3 kg Last Vital Signs Temp 36.5 C 04/15/25 11:15 Pulse 78 04/15/25 11:15 Resp 16 04/15/25 11:15 BP 108/71 04/15/25 11:15 Pulse Ox 100 04/15/25 11:15 O2 Del Method Room Air 04/15/25 11:15 Allergies Allergy/AdvReac Type Severity Reaction Status Date / Time No Known Allergies Allergy Verified 04/15/25 11:28 Home Medications ?Medication ?Instructions ?Recorded ?Confirmed ?Type No Home Medications 03/25/25 04/09/25 History Laboratory Tests 04/15/25 11:15 POC Urine HCG, Qual Negative (Negative) Patient hx anesthesia problems: none Family hx anesthesia problems: none Results Review: All pre-operative results and documents have been reviewed as part of the pre- operative evaluation. 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 Constipation Surgical History Surgical History Hx of cholecystectomy H/O gynecological procedure mirena insertion 08/25/2011 mirena removal 11/22/2012 H/O colonoscopy Family History Family History Father Diabetes mellitus Mother Hypertension Other Bone cancer Brain cancer Social History Social History Smoking status: Never smoker Alcohol intake: current Alcohol use details: occasional Substance use: never Lack of Transportation: No Lack of Food: Never True Current Housing: I Have Housing Concerned About Future Housing: No Difficulty Paying Gas/Electric Bills: No Difficulty Paying for Meds: No Currently Unemployed: No Education: High School Diploma/GED Difficulty w/ Childcare or Family Care: No Living arrangements: with family Occupation/Education: occupation Gender identity (if verbalized by the patient): Female Sexual Orientation (if Verbalized by the Patient): Straight or Heterosexual Spiritual care concerns: No Exam Day of Procedure 04/15/25 12:28
--- NOTE | 2025-04-15 12:31 | P.PNAN_ITS ---
Anes - Initial Pre Proc Eval Procedure: Operation Date: 04/15/25 12:30 Proposed Procedures p Hysteroscopy, Dilation and Curettage, Matilde Endometrial Ablation - Kadeem Cline MD Date/Time: 04/15/25 12:31 Surgeon: Kadeem Cline MD Pre Op Diagnosis: abnormal uterine bleeding Patient Data Age: 44 Gender: F Height: 1.65 m Weight: 70.3 kg Last Vital Signs Temp 36.5 C 04/15/25 11:15 Pulse 78 04/15/25 11:15 Resp 16 04/15/25 11:15 BP 108/71 04/15/25 11:15 Pulse Ox 100 04/15/25 11:15 O2 Del Method Room Air 04/15/25 11:15 Allergies Allergy/AdvReac Type Severity Reaction Status Date / Time No Known Allergies Allergy Verified 04/15/25 11:28 Home Medications ?Medication ?Instructions ?Recorded ?Confirmed ?Type No Home Medications 03/25/25 04/09/25 History Laboratory Tests 04/15/25 11:15 POC Urine HCG, Qual Negative (Negative) Patient hx anesthesia problems: none Family hx anesthesia problems: none Results Review: All pre-operative results and documents have been reviewed as part of the pre- operative evaluation. 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 Constipation Surgical History Surgical History Hx of cholecystectomy H/O gynecological procedure mirena insertion 08/25/2011 mirena removal 11/22/2012 H/O colonoscopy Family History Family History Father Diabetes mellitus Mother Hypertension Other Bone cancer Brain cancer Social History Social History Smoking status: Never smoker Alcohol intake: current Alcohol use details: occasional Substance use: never Lack of Transportation: No Lack of Food: Never True Current Housing: I Have Housing Concerned About Future Housing: No Difficulty Paying Gas/Electric Bills: No Difficulty Paying for Meds: No Currently Unemployed: No Education: High School Diploma/GED Difficulty w/ Childcare or Family Care: No Living arrangements: with family Occupation/Education: occupation Gender identity (if verbalized by the patient): Female Sexual Orientation (if Verbalized by the Patient): Straight or Heterosexual Spiritual care concerns: No Anes - Eval Final PreProcedure Day of Procedure 04/15/25 12:31 Patient weight: normal Heart: regular rate and rhythm Lungs: clear to auscultation Airway: Mallampati scale class II Neurological: alert and oriented Last oral intake: >/= 8 hours ASA classification: I Emergent: no Anesthetic plan: proceed Anesthesia type and monitoring: general GIVS and standard monitoring Results Review: All pre-operative results and documents have been reviewed as part of the pre- operative evaluation. Informed Consent: The patient's anesthetic plan and its attendant risks and benefits were discussed with the patient/family/POA. Questions were solicited and answers provided to the satisfaction of the patient/family/POA.
[2025-04-15] MEDS: LIDOCAINE 1% LOCAL INJ 10 ML VIAL INFILTRATE (13:16)
--- NOTE | 2025-04-15 13:20 | S_PTH ---
PATIENT: Da Lima LOC: [facility] U#:[id number] AGE/SX: 44/F ROOM: RE04/15/[address]: Kadeem Cline MD : 1980 BED: DIS: 04/15/2025 SPEC #: [id number] RECD: 04/15/25 13:51 STATUS: JANETTE RESara #: [id number] KATHLEEN: 04/15/25 13:[address]: Kadeem Cline DEPT: [facility] Surgical RECD BY: Jose Maher ENTERED: 04/15/25 13:51 SP TYPE: Surgical OTHR DR: Kaitlin Ambrosio, GUEST REQUEST RUNNER Tissues: A - Endometrial Curettings Procedures: Hematoxylin and Eosin Stain Gross and Microscopic Level 4
--- NOTE | 2025-04-15 13:26 | W.PM.PROC2 ---
Procedure Note - Detailed Date of Procedure 04/15/25 Pre-op Diagnosis abnormal uterine bleeding Post-op Diagnosis Same Procedure Performed paracervical block hysteroscopy dilation & curettage endometrial ablation Surgeon Kadeem Cline MD Anesthesia General Indications abnormal uterine bleeding Findings normal appearing intrauterine cavity. Normal tubal ostia bilaterally Description of Procedure Da Rodarte presents for the above procedure for management of AUB. She was counseled as to the indications, risks, benefits, and alternatives to surgery, with the risks including bleeding, infection, damage to surrounding organs, VTE, and complications of anesthesia. Her verbal and written consent was obtained. PROCEDURE: The patient was taken to the OR and general anesthesia induced. She was prepped and draped in Chencho stirrups with support of the back and bilateral lower extremities. I/O catheterization performed of the bladder. The above findings were noted. Infiltration with 1% lidocaine at the 3 and 9 o'clock cervical positions was performed. A single tooth tenaculum was placed on the anterior lip of the cervix. The uterus sounded to 8 cm. The cervix was dilated with sequential Selma dilators. Hysteroscopy, using a normal saline medium, was performed and showed the above findings. Sharp uterine curettage was then performed and tissue placed on Telfa. The Matilde device was set to a depth of 5.5 cm. The device was inserted into the uterus and deployed. Good fit was reassured by the device indicator. The cervical balloon was insufflated to ensure a good seal. Uterine integrity test was performed by the Matilde device and was successful. The device was then activated. The entire ablation procedure lasted 120 seconds. The cervical balloon was desufflated and the device was removed from the uterus. The hysteroscope was re-introduced to ensure adequate tissue ablation. The tenaculum was removed and hemostasis was observed. The patient tolerated the procedure well. Sponge, lap, and needle counts were correct. The patient had SCD's on throughout the case for VTE prophylaxis. The patient was taken to the recovery room in stable condition. Estimated Blood Loss 5 Drains No Packing No Pathology Yes (endometrial curettings ) Complications No immediate complications Condition Stable Disposition PACU [facility] Billing Surgery - Charge Forward: Surgery Billing
[2025-04-15 13:31] VITALS: BP 110/65; PULSE 72; RESP 16; TEMP 36.1; O2SAT 100
[2025-04-15] MEDS: LACTATED RINGERS 1,000 ML 30 ML IV CONT (13:31)
[2025-04-15 14:00] VITALS: BP 108/65; PULSE 60
[2025-04-15 14:25] VITALS: BP 109/68; PULSE 58
== END 2025-04-15 14:33 | disposition home or self-care (01) ==
PROVIDERS: PCP Midwife; Visit Provider Student in an Organized Health Care Education/Training Program
PROC: 0U5B8ZZ Destruction of Endometrium, Via Natural or Artificial Opening Endoscopic (ICD-10-PCS; CPT 58563; principal; 2025-04-15 12:30)
DX: N84.0 Polyp of corpus uteri (principal); Z98.890 Other specified postprocedural states; Z90.49 Acquired absence of other specified parts of digestive tract; Z87.19 Personal history of other diseases of the digestive system; Z80.8 Family history of malignant neoplasm of other organs or systems
CPT/HCPCS: 58563; 88305; A9270; J1100; J2003; J2250; J2405; J2704; J3010; J7120